=== PATIENT | male | born 1990 | race Caucasian/White ===

== ENCOUNTER 2016-08-23 20:28 | Emergency (ER) | payer BC, MEDICAID ==
[~2016-08-23] VITALS: Ht 167.6 cm; Wt 84.0 kg
[2016-08-23 20:31] VITALS: Ht 167.6 cm; Wt 84.0 kg
--- NOTE | 2016-08-23 22:54 | ERD ---
ER Documentation Chief Complaint Date/Time DATE: 08/23/16 TIME: 22:52 Chief Complaint LT NARE BLOODY NOSE MODERATE AMOUNT +MARIE AFTER HPI 25-year-old male presents to emergency department for complaints of a blood- tinged serous fluid coming out from the left naris started this morning. Patient is complaining of frontal headache, throbbing pain 4/10 scale, accompanying the symptom. Patient has been congested the last 2-3 days prior to today. Patient denies any head injury. Patient denies any fever or chills. Patient denies any neck pain. Patient denies any recent travel. ROS All systems reviewed and are negative except as per history of present illness. Medications Home Meds Reported Medications [none] Unknown Strength No Conflict Check 08/23/16 Allergies Allergies: Coded Allergies: No Known Allergy (Unverified , 08/23/16) PMhx/Soc Medical and Surgical Hx: pt denies Medical Hx, pt denies Surgical Hx Hx Alcohol Use: No Hx Substance Use: No Hx Tobacco Use: No FmHx Family History: No coronary disease, No diabetes, No other Physical Exam Vitals Vital Signs Date Time Temp Pulse Resp B/P Pulse Ox O2 Delivery O2 Flow Rate FiO2 08/23/16 20:31 98.5 88 20 150/86 99 Physical Exam GENERAL: The patient is well developed and appropriate for usual state of health, in no apparent distress. HEENT: Atraumatic. Ears: Normal tympanic membrane, no erythema or bulging. No ear canal swelling. No ear discharge. Nose: normal right nasal turbinates, no erythema or swelling. Left naris noted to be erythematous, and no active bleeding at this time. Normal nasal discharge. Throat: oropharynx clear. No tonsillar swelling or tonsillar exudates. No lymphadenopathy. And is on palpation of frontal sinuses. CHEST: Clear to auscultation bilaterally. There are no rales, wheezes or rhonchi. HEART: Regular rate and rhythm. No murmurs, clicks, rubs or gallops. No S3 or S4. ABDOMEN: Soft, nontender and nondistended. Good bowel sounds. No rebound or guarding. No gross peritonitis. No gross organomegaly or masses. No Hunter sign or McBurney point tenderness. BACK: No midline or flank tenderness. EXTREMITIES: Equal pulses bilaterally. There is no peripheral clubbing, cyanosis or edema. No focal swelling or erythema. Full range of motion. Grossly neurovascularly intact. NEURO: Alert and oriented. Cranial nerves 2-12 intact. Motor strength in all 4 extremities with 5/5 strength. Sensation grossly intact. Normal speech and gait. SKIN: There is no apparent rash or petechia. The skin is warm and dry. HEMATOLOGIC AND LYMPHATIC: There is no evidence of excessive bruising or lymphedema. No gross cervical, axillary, or inguinal lymphadenopathy. Results 24 hrs PROCEDURE: CT Head without. CLINICAL INDICATION: Nasal discharge, headache. TECHNIQUE: The study was performed utilizing a multi-slice, multidetector CT scanner. Direct spiral 1 mm axial sections were obtained through the head without the use of intravenous contrast material. 1 or more of the following dose reduction techniques were utilized: Automated exposure control, adjustment of the mA and/or kV according to patient's size, iterative reconstruction technique. Coronal and sagittal reformations were obtained. The images were reviewed on a PACS workstation. RADIATION DOSE: CTDIvol: 40.4 mGy DLP: 793.6 mGy-cm COMPARISON: No prior studies are available for comparison. FINDINGS: There is no intracranial hemorrhage, extra-axial fluid collection, mass lesion, midline shift or hydrocephalus. The ventricles, sulci and cisterns are within normal limits. The white matter is unremarkable. The mixon-white matter differentiation is preserved. The basal cisterns are patent. The midline structures are intact. The orbits, calvarium and extracranial soft tissues are normal in appearance. Partial visualization of the paranasal sinuses demonstrates probable mucous retention cyst in the left maxillary sinus. The remaining paranasal sinuses appear normally aerated. There is pneumatization of the bilateral petrous apices without evidence of inflammatory changes, normal variant. The mastoid air cells and middle ear cavities are normally aerated. IMPRESSION: 1. No acute intracranial abnormality. No intracranial hemorrhage, extra-axial fluid collection, mass lesion or hydrocephalous. 2. Probable mucous retention cyst in the dash sinus. If clinical concern for sinusitis, CT of the paranasal sinuses would be helpful for further evaluation. RPTAT: HGAS .Tony Ortega MD, MD Date Time Electronically viewed and signed by .Tony Ortega MD, on 08/23/2016 23: 09 .S/ CC: KG SHRESTHA NP Procedures/MDM Medical Decision Making: Patient symptoms aside is consistent with sinusitis, frontal sinusitis. There is low suspicion for neurological emergencies at this time since patients neurologic exam is normal. Patient did not have any altered level consciousness, vomiting, changes in balance or memory. Patients CT scan of the head does not show any neurological emergencies at this time. No symptoms of sepsis at this time. Patient appears well and is hemodynamically stable. Prescription was given for Flonase, Zyrtec, Augmentin,is advised to follow with primary care doctor in 2-3 days for reevaluation of symptoms. Patient is advised to return to emergency department for any worsening symptoms. Dispostion: Home. Stable Departure Diagnosis: Primary Impression: Frontal sinusitis Chronicity: acute Recurrence: non-recurrent Qualified Code: J01.10 - Acute non-recurrent frontal sinusitis Condition: Stable Patient Instructions: Acute Sinusitis Additional Instructions: Prescription was given for Flonase, Zyrtec, Augmentin,is advised to follow with primary care doctor in 2-3 days for reevaluation of symptoms. Patient is advised to return to emergency department for any worsening symptoms. KG SHRESTHA NP Aug 23, 2016 22:54
--- NOTE | 2016-08-23 23:09 | RADRPT ---
PROCEDURE: CT Head without. CLINICAL INDICATION: Nasal discharge, headache. TECHNIQUE: The study was performed utilizing a multi-slice, multidetector CT scanner. Direct spira l 1 mm axial sections were obtained through the head without the use of intravenous contrast materia l. 1 or more of the following dose reduction techniques were utilized: Automated exposure control, adjustment of the mA and/or kV according to patient's size, iterative reconstruction technique. Co clarice and sagittal reformations were obtained. The images were reviewed on a PACS workstation. RADIATION DOSE: CTDIvol: 40.4 mGyDLP: 793.6 mGy-cm COMPARISON: No prior studies are available for comparison. FINDINGS: There is no intracranial hemorrhage, extra-axial fluid collection, mass lesion, midline shift or hyd rocephalus. The ventricles, sulci and cisterns are within normal limits. The white matter is unrem arkable. The mixon-white matter differentiation is preserved. The basal cisterns are patent. The m idline structures are intact. The orbits, calvarium and extracranial soft tissues are normal in master earance. Partial visualization of the paranasal sinuses demonstrates probable mucous retention cyst in the left maxillary sinus. The remaining paranasal sinuses appear normally aerated. There is pne umatization of the bilateral petrous apices without evidence of inflammatory changes, normal variant . The mastoid air cells and middle ear cavities are normally aerated. IMPRESSION: 1. No acute intracranial abnormality. No intracranial hemorrhage, extra-axial fluid collection, ma ss lesion or hydrocephalous. 2. Probable mucous retention cyst in the dash sinus. If clinical concern for sinusitis, CT of the paranasal sinuses would be helpful for further evaluation. RPTAT: HGAS .Tony Ortega MD, MD Date Time Electronically viewed and signed by .Tony Ortega MD, on 08/23/2016 23:09 .S/
[2016-08-23] MEDS ORDERED: CETI10CA PO (23:25)
[2016-08-23] MEDS ORDERED: FLUT9.9S NASAL (23:25)
[2016-08-23] MEDS ORDERED: AMOX1TAB10 PO (23:25)
== END 2016-08-24 00:47 | disposition home or self-care (01) ==
LOC: FTE 20:28
DX: J01.10 Acute frontal sinusitis, unspecified (principal)
CPT/HCPCS: 70450; Z7502

== ENCOUNTER 2016-10-15 22:28 | Emergency (ER) | payer OTHER, MEDICAID ==
[~2016-10-15] VITALS: Ht 167.6 cm; Wt 83.5 kg
[~2016-10-15 22:28] MED LIST: AMOX1TAB10 PO; CETI10CA PO; FLUT9.9S NASAL
[2016-10-15 22:31] VITALS: Ht 167.6 cm; Wt 83.5 kg
[2016-10-15] MEDS ORDERED: TETRACAINE 0.5% 4 ML OPH BOTH EYES ONE (23:00)
[2016-10-15] MEDS ORDERED: FLUORESCEIN STRIP RIGHT EYE ONE (23:00)
[2016-10-15] MEDS ORDERED: ERYT1OIN6 RIGHT EYE (23:29)
--- NOTE | 2016-10-15 23:33 | ERD ---
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 He was not wearing safety goggles. He denies any visual changes but has pain in his eye. He woke up this morning with redness in his eye. No photosensitivity. ROS All systems reviewed and are negative except as per history of present illness. Medications Home Meds Active Scripts Erythromycin (Erythromycin Opth) 3.5 Gm Oint..gm., 1 APPLIC RIGHT EYE QID, #1 Prov:KISHA VAZQUEZ PA-C 10/15/16 Amoxicillin/Potassium Clav (Amox-Clav 875-125 mg Tablet) 875-125 mg Tab, 1 TAB PO BID for 10 Days, #20 TAB Prov:KG SHRESTHA NP 08/23/16 Cetirizine Hcl* (Zyrtec*) 10 Mg Capsule, 10 MG PO DAILY, #30 TAB.CHEW Prov:KG SHRESTHA NP 08/23/16 Fluticasone Propionate (Flonase Allergy Relief) 9.9 Ml [place].susp, 1 SPRAY NASAL BID, #1 BOTTLE TO EACH NOSTRIL Prov:KG SHRESTHA NP 08/23/16 Reported Medications [none] Unknown Strength No Conflict Check 08/23/16 Allergies Allergies: Coded Allergies: No Known Allergy (Unverified , 10/15/16) PMhx/Soc Medical and Surgical Hx: pt denies Medical Hx, pt denies Surgical Hx Hx Alcohol Use: No Hx Substance Use: No Hx Tobacco Use: No Smoking Status: Never smoker FmHx Family History: No diabetes Physical Exam Vitals Vital Signs Date Time Temp Pulse Resp B/P Pulse Ox O2 Delivery O2 Flow Rate FiO2 10/15/16 22:31 97.5 67 20 137/95 98 Physical Exam General: well developed, well nourished, alert, nontoxic, no distress Head: normocephalic, atraumatic Eyes: PERRL, right conjunctiva is injected. Extraocular movements intact, visual acuity is 20/20 all around, fluorescein examination does reveal foreign body in theright inner upper eyelid, no other areas of uptake Neck: Supple, nontender, no lymphadenopathy, no midline tenderness Respiratory: Clear to auscaultation bilaterally, speaks in full sentences, no use of accesory muscles or labored breathing, no rales, ronchi, or wheezing Cardiovascular: RRR, No murmurs Results 24 hrs Current Medications Medications (Trade) Dose Ordered Sig/Jennifer Route PRN Reason Start Time Stop Time Status Last Admin Dose Admin Tetracaine HCl (Tetracaine 0.5% Steri-Unit Kenisha) 1 drop ONCE ONCE BOTH EYES 10/15/16 23:00 10/15/16 23:01 DC Fluorescein Sodium (Jvwuk-Z-Lwjxg) 1 strip ONCE ONCE RIGHT EYE 10/15/16 23:00 10/15/16 23:01 DC Procedures/MDM 26-year-old male has foreign body in his upper eyelid which I visualized on physical exam. Visual acuity is normal I was able to remove it with the edge of a large-bore needle, patient tolerated procedure well. He was given outpatient ophthalmology follow-up prescription for erythromycin ophthalmic ointment. Recommended this patient follow up with her primary care doctor within 48 hours or return to the emergency room for any worsening of symptoms. However this time I do believe there is suitable for outpatient management. I answered all their questions and they agreed with the plan and were discharged home. Departure Diagnosis: Primary Impression: Eye foreign body Condition: Stable Patient Instructions: Corneal Foreign Body, Removed Referrals: [facility] Hours: Mon - Fri 9:00 AM - 5:00 PM Additional Instructions: Call your primary care doctor TOMORROW for an appointment during the next 1-2 days.See the doctor sooner or return here if your condition worsens before your appointment time. KISHA VAZQUEZ PA-C Oct 15, 2016 23:33
[2016-10-15 23:36] VITALS: BP 127/88; PULSE 78; RESP 20
== END 2016-10-16 00:06 | disposition home or self-care (01) ==
LOC: FTE 22:28
DX: T15.11XA Foreign body in conjunctival sac, right eye, initial encounter (principal); X58.XXXA Exposure to other specified factors, initial encounter; Y92.69 Other specified industrial and construction area as the place of occurrence of the external cause